=== PATIENT | male | born 1995 | race American Indian/Alaskan Native ===

== ENCOUNTER 2018-01-31 11:01 | Emergency (ER) | payer OTHER ==
[2018-01-31 11:11] VITALS: BP 118/73
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
[2018-01-31] MEDS ORDERED: BOOSTRIX IM ONE (12:22)
[2018-01-31] MEDS ORDERED: MOTRIN PO ONE (12:22)
== END 2018-01-31 12:46 ==
LOC: ED 11:01
DX: S61.412A Laceration without foreign body of left hand, initial encounter (principal); X99.1XXA Assault by knife, initial encounter; Y93.89 Activity, other specified; Y92.89 Other specified places as the place of occurrence of the external cause; Y99.8 Other external cause status
CPT/HCPCS: 90471; 90715; 99282